=== PATIENT | female | born 1980 | race Caucasian/White ===

== ENCOUNTER 2016-08-25 14:00 | Outpatient (CLI) | payer OTHER ==
[2016-08-25] VITALS (11 sets, daily range): BP systolic 118–136; BP diastolic 69–87; PULSE 75–94; TEMP 98.4
[~2016-08-25] VITALS: Ht 162.6 cm; Wt 100.0 kg
[~2016-08-25 14:00] MED LIST: BENADRYL25 M2 PO; IBU600 MG PO; PERCOCET 325 MG1 TA2 PO; PRENATAL1 TA7 PO; TYLENOL 325MG325 MG PO
[2016-08-25] MEDS ORDERED: FERROUS SULFATE65 MG PO (14:52)
[2016-08-25] MEDS ORDERED: ASPIRIN 81M81 MG/TA2 PO (14:53)
[2016-08-25 15:08] LABS: PH 7 (5-8); SQUAMOUS EPITHELIAL None Seen /hpf; URINE APPEARANCE Clear; URINE BACTERIA None Seen /hpf; URINE BILIRUBIN Negative (NEGATIVE); URINE BLOOD Negative (NEGATIVE); URINE COLOR Colorless; URINE GLUCOSE Negative (NEGATIVE); URINE KETONE Negative (NEGATIVE); URINE RBC None Seen /hpf; URINE UROBILINOGEN Negative (NEGATIVE); URINE WBC 0-2 /hpf
== END 2016-08-25 17:30 | disposition home or self-care (01) ==
LOC: LDRO 14:00
PROVIDERS: Obstetrics & Gynecology
DX: O26.893 Other specified pregnancy related conditions, third trimester (principal); R51 Headache; R03.0 Elevated blood-pressure reading, without diagnosis of hypertension; Z3A.35 35 weeks gestation of pregnancy

== ENCOUNTER 2016-09-09 07:04 | Inpatient (IN) | payer OTHER ==
[~2016-09-09] VITALS: Ht 162.6 cm; Wt 100.5 kg
[2016-09-09] VITALS (59 sets, daily range): BP systolic 106–142; BP diastolic 54–89; PULSE 75–125; TEMP 97.8–99.1
[~2016-09-09 07:04] MED LIST changes: +ASPIRIN 81M81 MG/TA2 PO; +FERROUS SULFATE65 MG PO
[2016-09-09 10:13] LABS: BASO % 0.2 % (0.0-2.0); EOS # 0.1 (0.0-0.7); EOS % 0.9 % (0-4.0); GRAN # 5.8 (1.4-6.5); GRAN % 72.4 % (42.2-75.2); LYMPH # 1.6 (1.2-3.4); LYMPH % 20.2 % (20.0-51.0); MEAN CELL VOLUME 88 fl (80.0-100.0); MEAN CORPUSCULAR HGB CONC 34 g/dl (33.0-37.0); MEAN PLATELET VOLUME 10.7 fl (7.4-10.4); MONO # 0.5 (0.1-0.6); MONO % 5.7 % (1.7-9.3); PLATELET COUNT 279 K/mm3 (130-400); RED BLOOD COUNT 3.72 M/mm3 (4.10-5.30); REDCELL DISTRIBUTION WIDTH-CV 13.2 % (11.5-14.5)
[2016-09-09 10:14] LABS: ALBUMIN 3.3 gm/dL (3.5-5.0); BILIRUBIN,TOTAL 0.4 mg/dL (0.0-1.0); CALCIUM 9.4 mg/dL (8.4-10.2); CREATININE, serum 0.63 mg/dL (0.52-1.25); TOTAL PROTEIN 6.7 gm/dL (6.4-8.2)
[2016-09-09 10:17] LABS: HEMATOCRIT 32.6 % (37.0-47.0); MEAN CORPUSCULAR HEMOGLOBIN 30 pg (27.0-31.0)
[2016-09-10] VITALS (39 sets, daily range): BP systolic 109–147; BP diastolic 55–88; PULSE 70–111; TEMP 97.4–98
[2016-09-10] MEDS ORDERED: IBU800 M1 PO (09:19)
[2016-09-10] MEDS ORDERED: PERCOCET 325 MG1 TA2 PO (09:20)
[2016-09-11 03:15] VITALS: BP 128/76; PULSE 94; TEMP 97.4
[2016-09-11 07:45] VITALS: BP 139/79; PULSE 101; TEMP 97.7
[2016-09-11 09:19] LABS: BASO % 0.2 % (0.0-2.0); EOS # 0.1 (0.0-0.7); EOS % 0.7 % (0-4.0); GRAN # 9.6 (1.4-6.5); GRAN % 82.1 % (42.2-75.2); LYMPH # 1.4 (1.2-3.4); LYMPH % 11.7 % (20.0-51.0); MEAN CELL VOLUME 89 fl (80.0-100.0); MEAN CORPUSCULAR HGB CONC 34 g/dl (33.0-37.0); MEAN PLATELET VOLUME 10.3 fl (7.4-10.4); MONO # 0.6 (0.1-0.6); MONO % 4.7 % (1.7-9.3); PLATELET COUNT 266 K/mm3 (130-400); RED BLOOD COUNT 2.86 M/mm3 (4.10-5.30); REDCELL DISTRIBUTION WIDTH-CV 13.5 % (11.5-14.5); WHITE BLOOD COUNT 11.7 K/mm3 (4.8-10.8)
[2016-09-11 09:22] LABS: HEMATOCRIT 25.5 % (37.0-47.0); HEMOGLOBIN 8.7 g/dl (12.5-16.0); MEAN CORPUSCULAR HEMOGLOBIN 30 pg (27.0-31.0)
[2016-09-11 09:31] LABS: ADJUSTED CALCIUM 9.6 mg/dL (8.4-10.2); ALBUMIN 2.6 gm/dL (3.5-5.0); BILIRUBIN,TOTAL 0.4 mg/dL (0.0-1.0); CALCIUM 8.5 mg/dL (8.4-10.2); CREATININE, serum 0.61 mg/dL (0.52-1.25); TOTAL PROTEIN 5.7 gm/dL (6.4-8.2)
[2016-09-11 15:45] VITALS: BP 136/71; PULSE 99; TEMP 97.3
[2016-09-11 20:30] VITALS: BP 132/63; PULSE 80; TEMP 97.7
[2016-09-12 07:05] VITALS: BP 134/71; PULSE 88; TEMP 98
[2016-09-12 16:56] VITALS: BP 133/80; PULSE 82; TEMP 97.2
== END 2016-09-12 18:00 | disposition home or self-care (01) | DRG 765 ==
LOC: LDR 07:04 → OB 08:03
PROVIDERS: Obstetrics & Gynecology
PROC: 3E033VJ Introduction of Other Hormone into Peripheral Vein, Percutaneous Approach (ICD-10-PCS; 2016-09-09)
PROC: 10907ZC Drainage of Amniotic Fluid, Therapeutic from Products of Conception, Via Natural or Artificial Opening (ICD-10-PCS; 2016-09-09)
PROC: 10D00Z1 Extraction of Products of Conception, Low, Open Approach (ICD-10-PCS; principal; 2016-09-10)
DX: O14.03 Mild to moderate pre-eclampsia, third trimester (principal); O36.0130 Maternal care for anti-D [Rh] antibodies, third trimester, not applicable or unspecified; O99.12 Other diseases of the blood and blood-forming organs and certain disorders involving the immune mechanism complicating childbirth; D68.59 Other primary thrombophilia; D62 Acute posthemorrhagic anemia; O64.0XX0 Obstructed labor due to incomplete rotation of fetal head, not applicable or unspecified; O75.81 Maternal exhaustion complicating labor and delivery; O62.1 Secondary uterine inertia; O09.293 Supervision of pregnancy with other poor reproductive or obstetric history, third trimester; O99.02 Anemia complicating childbirth; Z3A.37 37 weeks gestation of pregnancy; Z37.0 Single live birth
CPT/HCPCS: J0690; J1200; J1885; J2270; J2370; J2400; J2405; J2590; J2790; J2795; J3010; J7120

== ENCOUNTER → 2016-09-16 | Outpatient (CLI) | payer OTHER ==
[~2016-09-16] MED LIST changes: +IBU800 M1 PO
== END ==
LOC: OLC 10:39
DX: Z39.1 Encounter for care and examination of lactating mother (principal); Z71.89 Other specified counseling

== ENCOUNTER → 2016-09-23 | Outpatient (CLI) | payer OTHER | LOC: OLC 11:03 | DX: Z39.1 Encounter for care and examination of lactating mother (principal); Z71.89 Other specified counseling ==

== ENCOUNTER → 2016-09-30 | Outpatient (CLI) | payer OTHER | LOC: OLC 10:48 | DX: Z39.1 Encounter for care and examination of lactating mother (principal); Z71.89 Other specified counseling ==

== ENCOUNTER → 2016-10-07 | Outpatient (CLI) | payer OTHER | LOC: LAC 11:06 | DX: Z39.1 Encounter for care and examination of lactating mother (principal); Z71.89 Other specified counseling ==